=== PATIENT | male | born 1975 | race Caucasian/White ===

== ENCOUNTER 2018-02-17 06:42 | Day surgery (SDC) | payer OTHER ==
[2018-02-17] MEDS ORDERED: SLF 3 ML SYR IV (07:00)
[2018-02-17] MEDS: PHENYLEPHRINE 2.5% OPHTH SOL 2ML OS (07:05)
[2018-02-17] MEDS: OFLOXACIN 0.3 % (OCUFLOX) OPTH SOL 5ML OS (07:05)
[2018-02-17] MEDS: PROPARACAINE 0.5% OPHTH SOL 15ML OS (07:05)
[2018-02-17] MEDS: SLF 3 ML SYR IV (07:10)
[2018-02-17] MEDS: TROPICAMIDE 1% OPHTH SOLN 2ML OS (07:26)
[2018-02-17] MEDS ORDERED: MIDAZOLAM INJ 2 MG/2 ML VIAL (J2250) As Ordered (07:31)
[2018-02-17] MEDS ORDERED: fentaNYL 100 MCG/2 ML INJECTION (J3010) As Ordered (07:31)
[2018-02-17] MEDS: DUOVISC (0.50ML VISCOAT/0.55ML PROVISC) OPHTH KIT As Ordered (09:09)
[2018-02-17] MEDS: BALANCED SALT IRRIGATION SOLUTION 500ML BAG (FOR OR EYE MACHINE) As Ordered (09:09)
[2018-02-17] MEDS: POVIDONE-IODINE 5% OPHTH PREP SOL 30ML As Ordered (09:09)
[2018-02-17] MEDS: CEFUROXIME 1MG/0.1ML INTRACAMERAL INJ As Ordered (09:10)
[2018-02-17] MEDS: LIDOCAINE 0.75%/EPINEPHRINE 0.025% IN BSS 1ML SYR INTRACAMERAL (OR ONLY) As Ordered (09:10)
== END 2018-02-17 10:06 | disposition home or self-care (01) ==
LOC: M SDC 06:42
DX: H26.102 Unspecified traumatic cataract, left eye (principal); H25.12 Age-related nuclear cataract, left eye; F17.210 Nicotine dependence, cigarettes, uncomplicated
CPT/HCPCS: 66982

== ENCOUNTER 2018-02-24 06:29 | Day surgery (SDC) | payer OTHER ==
[2018-02-24] MEDS: PHENYLEPHRINE 2.5% OPHTH SOL 2ML OD (07:21)
[2018-02-24] MEDS: OFLOXACIN 0.3 % (OCUFLOX) OPTH SOL 5ML OD (07:21)
[2018-02-24] MEDS: PROPARACAINE 0.5% OPHTH SOL 15ML OD (07:21)
[2018-02-24] MEDS: TROPICAMIDE 1% OPHTH SOLN 2ML OD (07:21)
[2018-02-24] MEDS ORDERED: fentaNYL 100 MCG/2 ML INJECTION (J3010) As Ordered ×2 (08:12→08:38)
[2018-02-24] MEDS ORDERED: MIDAZOLAM INJ 2 MG/2 ML VIAL (J2250) As Ordered ×2 (08:12→08:38)
[2018-02-24] MEDS: POVIDONE-IODINE 5% OPHTH PREP SOL 30ML As Ordered (08:30)
[2018-02-24] MEDS: BALANCED SALT IRRIGATION SOLUTION 500ML BAG (FOR OR EYE MACHINE) As Ordered (08:36)
[2018-02-24] MEDS: LIDOCAINE 0.75%/EPINEPHRINE 0.025% IN BSS 1ML SYR INTRACAMERAL (OR ONLY) As Ordered (08:36)
[2018-02-24] MEDS: DUOVISC (0.50ML VISCOAT/0.55ML PROVISC) OPHTH KIT As Ordered (08:36)
[2018-02-24] MEDS: CEFUROXIME 1MG/0.1ML INTRACAMERAL INJ As Ordered (08:37)
[2018-02-24] MEDS: ACETYLCHOLINE OPHTH SOLN 1% 2ML (MIOCHOL-E) As Ordered (08:47)
== END 2018-02-24 09:31 | disposition home or self-care (01) ==
LOC: M SDC 06:29
DX: H26.101 Unspecified traumatic cataract, right eye (principal); M12.9 Arthropathy, unspecified; Z72.0 Tobacco use
CPT/HCPCS: 66982